=== PATIENT | female | born 1985 | race American Indian/Alaskan Native ===

== ENCOUNTER 2025-07-21 00:54 | Emergency (ER) | payer SELFPAY ==
[2025-07-21 02:25] LABS: #Basophils 0.1 thou/uL (0.0-0.2); #Eosinophils 0.4 thou/uL (0.0-0.7); #Lymphocytes 4.0 thou/uL (1.20-3.40); #Monocytes 0.6 thou/uL (0.11-0.59); #Neutrophils 6.1 thou/uL (1.40-6.50); %Basophils 0.8 % (0.0-1.0); %Eosinophils 3.3 % (0.0-10.0); %Lymphocytes 35.6 % (21.0-51.0); %Monocytes 5.1 % (0.0-10.0); %Neutrophils 55.3 % (42.0-75.0); Hematocrit 35.8 % (36.0-47.0); Hemoglobin 11.1 g/dL (12.0-16.0); Mean Corpuscular Hemoglobin 23.8 pg (27.0-31.0); Mean Corpuscular Volume 76.8 fl (78.0-98.0); Platelet Count 412 10x3/uL (130-400); Red Blood Cell (RBC) Count 4.67 mill/uL (4.20-5.40); White Blood Cell (WBC) Count 11.1 10x3/uL (4.8-10.8)
[2025-07-21 02:26] LABS: INR-International Normal Ratio 1.0; Prothrombin Time 12.8 sec (12.0-14.7)
[2025-07-21 02:28] LABS: Microcytosis SLIGHT = 6-15 cells (100X) (0-5/hpf); Platelet Adequacy Comment Platelets Increased
[2025-07-21 02:34] LABS: ALT (SGPT) 59 U/L (Less than 34); AST (SGOT) 55 U/L (11-34); Albumin 3.9 g/dL (3.1-4.5); Alkaline Phosphatase 105 U/L (40-110); Anion Gap 15 mmol/L (10-20); BUN (Urea Nitrogen) 13 mg/dL (7.0-18.7); Bilirubin, Total 0.1 mg/dL (0.3-1.2); Calc. Creatinine Clearance 0 mL/min (70-130); Calcium 9.2 mg/dL (7.8-10.44); Carbon Dioxide 24 mmol/L (22-29); Chloride 104 mmol/L (98-107); Globulin 4.1 g/dL (2.4-3.5); Glucose 119 mg/dL (70-105); Potassium 4.1 mmol/L (3.5-5.1); Sodium 139 mmol/L (136-145)
[2025-07-21] MEDS ORDERED: Ibuprofen 800 MG TAB ONE (04:04)
[2025-07-21 11:48] LABS: CRP, High Sensitivity at Bryan 0.88 mg/dL (< or = 0.5)
[2025-07-21] MEDS ORDERED: Iopamidol 370 76% 100 ML VIAL ONE (12:53)
== END 2025-07-21 05:40 | disposition home or self-care (01) ==
LOC: BURERS 00:54
DX: M54.12 Radiculopathy, cervical region (principal)
CPT/HCPCS: 71260; 72125; 80053; 85025; 85610; 86141; 96372; J2270; J2272; Q9967